=== PATIENT | female | born 1970 | race Caucasian/White ===

== ENCOUNTER 2019-01-15 08:07 | Day surgery (SDC) | payer OTHER ==
[~2019-01-15] VITALS: Wt 78.0 kg
[~2019-01-15 08:07] MED LIST: ACYC400; ALBU90OI INH; CETI5 PO; ESCI10 PO; ESTR2 PO; ESTROGEN PATCH; FAMO40; FAMO40 PO; HYDR1TAB94 PO; Mobic15 MG; Pepcid40 MG PO; Percocet 5-3251 EACH PO
--- NOTE | 2019-01-15 08:44 | NUR ---
Ambulatory in Day Surgery. Patient states colon prep results clear. History, Chart, Medications and Allergies reviewed before start of procedure. Lungs clear T/O to Auscultation. Patient confirms NPO status and agrees with scheduled surgery. Pre-Op teaching done. Pt verbalizes understanding. Patient States Post-Procedure ride home has been arranged.
--- NOTE | 2019-01-15 09:34 | NUR ---
PT RETURN TO STEPDOWN. CONVERSING WITH NURSING STAFF. NO C/O PAIN OR DISCOMFORT.
--- NOTE | 2019-01-15 09:42 | NUR ---
REVIEWED DISCHARGE INSTRUCTIONS WITH PATIENT WHO VERBALIZES UNDERSTANDING OF ALL INSTRUCTIONS GIVEN.
--- NOTE | 2019-01-15 09:49 | NUR ---
PT STOOD AT EDGE OF BED AND DRESSED SELF WITHOUT DIFFICULTY. STEADY ON FEET. IV D/C TIP INTACT. WILL DC HOME VIA WC WITH FRIEND TO DRIVE HER.
--- NOTE | 2019-01-15 10:27 | NUR ---
01/15/19 1027 Shawn Lee PATIENT DETERMINED TO BE ASA APPROPRIATE FOR PROPOFOL SEDATION PRIOR TO START OF PROCEDURE BY 3-LEAD EKG REVIEWED WITH PHYSICIAN PRIOR TO START OF PROCEDURE.Patient to ENDO 1History, Chart, Medications and Allergies reviewed before start of procedure.MONITOR INTACT WITH CONTINUOUS PULSE OXIMETRY AND INTERMITTENT BP.O2 VIA N/C INTACT THROUGHOUT SEDATION/PROCEDURE.
== END 2019-01-15 22:36 | disposition home or self-care (01) ==
LOC: ORSCMMR 08:07 → ORD 09:30 → ORSCMMR 22:36
PROVIDERS: Internal Medicine Gastroenterology
PROC: 0DBN8ZX Excision of Sigmoid Colon, Via Natural or Artificial Opening Endoscopic, Diagnostic (ICD-10-PCS; principal; 2019-01-15 09:30)
PROC: 0DBP8ZX Excision of Rectum, Via Natural or Artificial Opening Endoscopic, Diagnostic (ICD-10-PCS; principal; 2019-01-15 09:30)
DX: R19.4 Change in bowel habit (principal); K63.5 Polyp of colon; K62.1 Rectal polyp; F41.9 Anxiety disorder, unspecified; K21.9 Gastro-esophageal reflux disease without esophagitis; Z86.010 Personal history of colon polyps
CPT/HCPCS: 88305; J2704; J7120

== ENCOUNTER 2020-10-21 00:47 | Emergency (ER) | payer OTHER ==
[~2020-10-21] VITALS: Ht 165.1 cm; Wt 77.1 kg
[2020-10-21] MEDS ORDERED: PRED20 PO (01:45)
[2020-10-21] MEDS ORDERED: FLUO10 (01:45)
[2020-10-21] MEDS ORDERED: CYCL10 (01:45)
== END 2020-10-21 04:08 | disposition home or self-care (01) ==
LOC: ER 00:47
DX: S01.01XA Laceration without foreign body of scalp, initial encounter (principal); F10.129 Alcohol abuse with intoxication, unspecified; Z88.5 Allergy status to narcotic agent; Z79.3 Long term (current) use of hormonal contraceptives; Z87.891 Personal history of nicotine dependence; V86.69XA Passenger of other special all-terrain or other off-road motor vehicle injured in nontraffic accident, initial encounter; Y92.410 Unspecified street and highway as the place of occurrence of the external cause
CPT/HCPCS: 12001; 70450; 99284-25

== ENCOUNTER → 2020-10-29 | Outpatient (CLI) | payer OTHER ==
[~2020-10-29] MED LIST changes: +CYCL10; +FLUO10; +PRED20 PO
== END | disposition home or self-care (01) ==
LOC: LAB SHORT 13:45 → PLD 13:45
DX: Z51.89 Encounter for other specified aftercare (principal)
CPT/HCPCS: 87070; 87077; 87147; 87186; 87205

== ENCOUNTER 2023-03-13 06:54 | Day surgery (SDC) | payer OTHER ==
[~2023-03-13] VITALS: Ht 162.6 cm; Wt 71.9 kg
[2023-03-13] VITALS (15 sets, daily range): BP systolic 95–140; BP diastolic 47–80
[2023-03-13] MEDS ORDERED: IBUP600 PO (07:10)
--- NOTE | 2023-03-13 08:05 | NUR ---
03/13/23 0805 Cass Maxwell HISTORY, CHART, MEDICATIONS AND ALLERGIES REVIEWED BEFORE START OF PROCEDURE. PATIENT CONFIRMS NPO STATUS AND AGREES WITH SCHEDULED PROCEDURE. 3-LEAD EKG REVIEWED WITH PHYSICIAN PRIOR TO START OF PROCEDURE. MONITOR INTACT WITH CONTINUOUS PULSE OXIMETRY,CAPNOGRAPHY, 3-LEAD EKG, INTERMITTENT BP. SUPPLEMENTAL O2 TO BE TITRATED THROUGHOUT PROCEDURE TO MAINTAIN O2 SATURATION ABOVE 90%. PATIENT DETERMINED TO BE ASA APPROPRIATE FOR PROPOFOL SEDATION PRIOR TO START OF PROCEDURE BY .
--- NOTE | 2023-03-13 08:52 | NUR ---
Patient up to Ambulate independently. Gait steady. Discharge instructions reviewed with patient. Patient verbalizes understanding. Copy given to patient to take home. Patient States Post-Procedure ride home has been arranged. Discharged via wheelchair to private car for ride home.
== END 2023-03-13 08:52 | disposition home or self-care (01) ==
LOC: ORSCMMR 06:54 → ORD 08:00 → ORSCMMR 08:00
PROVIDERS: Internal Medicine Gastroenterology
PROC: 0DJD8ZZ Inspection of Lower Intestinal Tract, Via Natural or Artificial Opening Endoscopic (ICD-10-PCS; principal; 2023-03-13 08:00)
DX: R19.4 Change in bowel habit (principal); Z86.010 Personal history of colon polyps; F41.9 Anxiety disorder, unspecified; K21.9 Gastro-esophageal reflux disease without esophagitis; Z79.899 Other long term (current) drug therapy
CPT/HCPCS: J0461; J2704; J7120

== ENCOUNTER 2023-11-03 01:21 | Emergency (ER) | payer OTHER ==
[~2023-11-03] VITALS: Ht 165.1 cm; Wt 79.4 kg
[~2023-11-03 01:21] MED LIST changes: +IBUP600 PO
[2023-11-03] MEDS ORDERED: Lidocaine/Tetracaine/Epinephr 4 ML SOLN TOP ONE (02:25)
[2023-11-03] MEDS ORDERED: Cephalexin Monohydrate 500 MG Cap PO ONE (02:45)
[2023-11-03] MEDS ORDERED: HYDROcodone 5-APAP 325 TAB PO ONE (03:55)
[2023-11-03] MEDS ORDERED: Ondansetron 4 MG SoluTab SL ONE (04:05)
[2023-11-03] MEDS ORDERED: Trimethoprim/Sulfamethoxazole DS Tab PO ONE (05:25)
[2023-11-03] MEDS ORDERED: SULTRIDS PO (05:32)
[2023-11-03] MEDS ORDERED: Ibuprofen 600 MG Tab PO ONE (05:40)
[2023-11-03 05:50] VITALS: BP 118/78
== END 2023-11-03 05:53 | disposition home or self-care (01) ==
LOC: ER 01:21
DX: S01.81XA Laceration without foreign body of other part of head, initial encounter (principal); G44.309 Post-traumatic headache, unspecified, not intractable; W01.10XA Fall on same level from slipping, tripping and stumbling with subsequent striking against unspecified object, initial encounter; Z88.5 Allergy status to narcotic agent; Z79.899 Other long term (current) drug therapy; Z87.891 Personal history of nicotine dependence
CPT/HCPCS: 12013; 70450; 70486; 99283-25; A9270